=== PATIENT | female | born 1990 | race Caucasian/White ===

== ENCOUNTER 2019-12-30 20:57 | Emergency (ER) | payer SELFPAY ==
[~2019-12-30] VITALS: Ht 162.6 cm; Wt 72.6 kg
[2019-12-30 21:15] VITALS: BP 141/90
--- NOTE | 2019-12-30 21:45 | NUR ---
PT AMBULATED TO BED 4
--- NOTE | 2019-12-30 21:55 | NUR ---
29 y/o female c/o anxiety, excessive crying, and apprehensivesness x3 hours. pt states having received bad news and feels very anxious since. pt denies any pain, pt denies drug use, alcohol use, and denies taking any medications. pt appears apphrensive. pt is not in any acute distress. clear lung sounds. s1 s2 noted. denies n/v, diarrhea. PMH: HEADACHE NKA
--- NOTE | 2019-12-30 22:14 | NUR ---
ERMD AT BEDSIDE FOR MEDICAL EVALUATION.
[2019-12-30] MEDS ORDERED: LORazepam 2 MG/ML VIAL IM ONE (22:15)
--- NOTE | 2019-12-30 23:04 | NUR ---
GLORIAD MADE AWARE OF CURRENT VS AND STATES PT IS READY FOR DISCHARGE.
[2019-12-30 23:05] VITALS: BP 143/89
--- NOTE | 2019-12-30 23:05 | NUR ---
Patient discharged with v/s stable. Written and verbal after care instructions given and explained. Patient verbalized understanding. Ambulatory with steady gait. All questions addressed prior to discharge. Advised to follow up with PMD.
== END 2019-12-30 23:05 | disposition home or self-care (01) ==
LOC: MED 20:57 → EDBD 20:57 → MED 23:05
DX: F41.9 Anxiety disorder, unspecified (principal)
CPT/HCPCS: 96372; 99283; J2060

== ENCOUNTER 2022-12-02 06:54 | Day surgery (SDC) | payer MEDICAID ==
[~2022-12-02] VITALS: Ht 157.5 cm; Wt 63.5 kg
[2022-12-02] MEDS ORDERED: BUPIVACAINE-MPF 0.25% 30 ML VIAL INJ ONE (07:14)
[2022-12-02] MEDS ORDERED: BUPIVACAINE-MPF 0.5% 10 ML VIAL INJ ONE (07:24)
[2022-12-02] MEDS ORDERED: PROPOFOL 200 MG/20 ML VIAL IV ONE ×39 (07:44→07:45)
[2022-12-02] MEDS ORDERED: MIDAZOLAM 2 MG/2 ML VIAL ONE (07:44)
[2022-12-02] MEDS ORDERED: fentaNYL citrate 0.05 MG/ML VIAL ONE (07:44)
[2022-12-02 07:48] LABS: BASOPHILS % (AUTO) 0.7 % (0.0-2.0); EOSINOPHILS # (AUTO) 0.3 K/uL (0-0.4); EOSINOPHILS % (AUTO) 4.2 % (0.0-4.0); HEMATOCRIT 37.2 % (36-48); HEMOGLOBIN 12.5 g/dL (12.0-16.0); LYMPHOCYTES # (AUTO) 2.5 K/uL (2.5-16.5); MEAN CORPUSCULAR HEMOGLOBIN 29 pg (27-31); MEAN CORPUSCULAR HGB CONC 34 g/dL (33-37); MEAN CORPUSCULAR VOLUME 85.8 fL (80-94); MONOCYTES # (AUTO) 0.4 K/uL (0.8-1.0); MONOCYTES % (AUTO) 7.3 % (1.7-9.3); NEUTROPHILS # (AUTO) 2.8 K/uL (1.8-7.7); NEUTROPHILS % (AUTO) 45.8 % (42.2-75.2); PLATELET COUNT (AUTO) 299 K/uL (140-450); RED BLOOD CELL COUNT(AUTO) 4.33 MIL/uL (4.20-5.40)
[2022-12-02 08:02] LABS: ALBUMIN 3.8 g/dL (3.4-5.0); ANION GAP 13.8 (8-16); CALCIUM 8.3 mg/dL (8.5-10.1); CARBON DIOXIDE 24.8 mmol/L (21-32); CREATININE 0.7 mg/dL (0.6-1.3); POTASSIUM 3.6 mmol/L (3.5-5.1); TOTAL BILIRUBIN 0.5 mg/dL (0.0-1.0); TOTAL PROTEIN, SERUM 7.4 g/dL (6.4-8.2)
[2022-12-02] MEDS ORDERED: SUGAMMADEX SODIUM 200 MG/2 ML VIAL IV ONE (09:17)
[2022-12-02] MEDS ORDERED: HYDROmorphone 1 MG/ML AMP IVP PRN (09:35)
[2022-12-02] MEDS ORDERED: ONDANSETRON 4 MG/2 ML VIAL IVP PRN (09:35)
[2022-12-02] MEDS ORDERED: MEPERIDINE 25 MG/ML SYR IVP PRN (09:35)
[2022-12-02] MEDS ORDERED: ROCURONIUM 50 MG/5 ML VIAL IV ONE (09:40)
[2022-12-02] MEDS ORDERED: SEVOFLURANE 250 ML BTL INH ONE (09:40)
[2022-12-02] MEDS ORDERED: SUCCINYLCHOLINE CHLORIDE 200 MG/10 ML VIAL IVP ONE (09:40)
[2022-12-02] MEDS ORDERED: ePHEDrine 50 MG/ML VIAL ONE (09:45)
[2022-12-02] MEDS ORDERED: LIDOCAINE 2% 100 MG/5 ML SYR IVP ONE (09:46)
== END 2022-12-02 11:08 | disposition home or self-care (01) ==
LOC: MOR 06:54 → MMU 06:55 → MOR 11:08
PROVIDERS: ATTEND Obstetrics & Gynecology
DX: Z30.2 Encounter for sterilization (principal); Z79.01 Long term (current) use of anticoagulants
CPT/HCPCS: 36415; 58670; 80053; 85025; J0330; J2001; J2250; J2704; J3010; J3490